=== PATIENT | male | born 1955 | race Caucasian/White ===

== ENCOUNTER 2023-03-16 19:47 | Observation (INO) ==
[2023-03-16] MEDS ORDERED: SODIUM CHLORIDE 0.9% 1,000 ML IV ONE ×2 (19:55→20:05)
[2023-03-16 20:34] LABS: Base Excess VBG -4.8 mEq/L; HCO3 VBG 22 mmol/L; Oxygen Saturation VBG 82.6 %; PCO2 VBG 44 mmHg (38-50); PO2 VBG 51 mmHg
[2023-03-16 21:12] LABS: BUN Creatinine Ratio 18.2 (10-20); Calcium 8.8 mg/dl (8.6-10.3); Creatinine Clr Calc Pharmacy 29.9 ml/min; Est GFR (African American) 24.4 ml/min; Est GFR (Non-African American) 21.1 ml/min; Potassium 5.4 mmol/L (3.5-5.1)
[2023-03-16 21:47] LABS: Basophils # (auto) 0.06 K/uL (0.00-0.20); Basophils % (auto) 0.8 %; Eosinophils # (auto) 0.15 K/uL (0.00-0.50); Hematocrit (blood only) 30.5 % (42.0-52.0); Hemoglobin 10.4 g/dl (14.0-18.0); Immature Granulocytes # (auto) 0.06 K/uL (0.01-0.20); Immature Granulocytes % (auto) 0.8 %; Lymphocytes # (auto) 1.23 K/uL (1.20-3.40); Lymphocytes % (auto) 16.1 %; Mean Corpuscular Hemoglobin 31.2 pg (25.0-34.0); Mean Corpuscular Hgb Conc 34.1 g/dL (32.0-36.0); Mean Corpuscular Volume 91.6 fL (80.0-100.0); Mean Platelet Volume 10.5 fL (9.4-12.4); Monocytes # (auto) 0.66 K/uL (0.11-0.59); Monocytes % (auto) 8.7 %; Neutrophils # (auto) 5.46 K/uL (1.40-6.50); Neutrophils % (auto) 71.6 %; Platelet Count 227 K/uL (130-400); RDW Coefficient of Variation 12.8 % (11.5-14.5); RDW Standard Deviation 43.3 fL (36.4-46.3); Red Blood Count 3.33 M/uL (4.70-6.10); White Blood Count 7.62 K/ul (4.8-10.8)
[2023-03-16] MEDS ORDERED: SODIUM CHLORIDE 0.9% 1,000 ML IV SCH (22:30)
--- NOTE | 2023-03-16 22:42 | Emergency Department Note ---
History of Present Illness General Chief complaint: Hyperglycemia Stated complaint: HYPERGLYCEMIA Time Seen by Provider: 03/16/23 19:55 History of Present Illness Provider complaint: Hyperglycemia Onset (ago): day(s) 1 67-year-old male insulin-dependent diabetic with an insulin pump presents emergency department for hyperglycemia. Patient reports for the last day he is not sure if his insulin pump is working properly. Patient states he been having trouble getting the site to work. Patient reports that he has been having increasing weakness and thirst. He states he took his blood sugar at home and was greater than 600. No chest pain difficulty breathing nausea vomiting or diarrhea. No abdominal pain. Past Med/Surg History Medical History H/O insulin dependent diabetes mellitus No pertinent family history Surgical History No pertinent past surgical history Social History Smoking Status: Never smoker Preferred Language: Lebanese Feels Safe at Home: Yes Physical Exam Vital Signs Vital Signs - 24 hr 03/16/23 19:50 03/16/23 19:55 03/16/23 21:04 Temperature 36.7 C Temperature Source Temporal Artery Scan Pulse Rate 96 H 80 Respiratory Rate 18 Respiratory Depth Normal Blood Pressure 161/80 H Blood Pressure Mean 107 Pulse Oximetry 97 Oxygen Delivery Method Room Air Room Air Sepsis Recent Fever Within 48 Hours No Sepsis New/Unexplained Change in Mental Status N/A Sepsis Action Taken by Nursing No Action Required Physical Exam GENERAL: oriented to person, place, and time. appears well-developed and well- nourished. HENT: Exam performed. - Head: Normocephalic and atraumatic. EYES: Conjunctivae and EOM are normal. Right eye exhibits no discharge. Left eye exhibits no discharge. No scleral icterus. NECK: Normal range of motion. Neck supple. No JVD present. CV: Normal rate, regular rhythm, normal heart sounds and intact distal pulses. There is no peripheral edema. Palpable radial pulses bue. PULM/CHEST: Effort normal and breath sounds normal. No respiratory distress. No stridor. no wheezes. no rales. ABD: The abdomen is soft. There is no tenderness. Insulin pump in place. NEURO: Motor and sensation grossly intact. SKIN: Skin is warm and dry. He is not diaphoretic. PSYCH: normal mood and affect. Behavior is normal. Judgment and thought content normal. Course Course 1954: The patient was evaluated in room C6. A complete history and physical exam was performed Cardiac monitoring: An order was placed for continuous cardiac monitoring. The monitor shows a rate of 80 with sinus rhythm interpreted by me [id number]: Vital signs stable. Status post 2 L of IV fluids the patient's Accu-Chek has improved from 568-488. Labs are significant for sodium of 129 potassium 5.4 creatinine 2.92. Patient states he is originally from the [facility] and gets all of his care through [facility]. Patient states he does know he has kidney disease but is not sure what his creatinine usually runs. Given that the patient's creatinine ill is elevated we do not have baseline as well as the fact that the patient insulin pump is not working, the patient would be admitted to this hospital overnight for IV hydration and glucose control. Spoke with Dr. Nathaly Robbins hospitalist and discussed his blood sugars as well as that his insulin pump was not working. I asked Dr. Lady sosa if you would like me to start the patient on insulin drip or if he would just like to manage his blood sugars through a sliding scale, he states that he will manage the patient's glucose with Lantus and do not start insulin drip at this time. Administered Medications Discontinued Medications Sodium Chloride (Nss) 1,000 mls @ 999 mls/hr IV .Q1H1M ONE Stop: 03/16/23 20:55 Last Infusion: 03/16/23 21:51 Dose: 0 mls/hr Documented By: Admin: 03/16/23 20:26 Dose: 999 mls/hr Documented By: YANI Sodium Chloride (Nss) 1,000 mls @ 999 mls/hr IV .Q1H1M ONE Stop: 03/16/23 21:05 Last Infusion: 03/16/23 21:51 Dose: 0 mls/hr Documented By: Admin: 03/16/23 20:26 Dose: 999 mls/hr Documented By: YANI Medical Decision Making Laboratory Data Attestation: I reviewed the patient's lab results. 03/16/23 20:16 03/16/23 20:16 Lab Results 1003/16/23 03/16/23 Range/Units 19:53 20:16 20:16 WBC 7.62 (4.8-10.8) K/ul RBC 3.33 L (4.70-6.10) M/uL Hgb 10.4 L (14.0-18.0) g/dl Hct 30.5 L (42.0-52.0) % MCV 91.6 (80.0-100.0) fL MCH 31.2 (25.0-34.0) pg MCHC 34.1 (32.0-36.0) g/dL RDW Std Deviation 43.3 (36.4-46.3) fL RDW Coeff of Anjum 12.8 (11.5-14.5) % Plt Count 227 (130-400) K/uL MPV 10.5 (9.4-12.4) fL Immature Gran % (Auto) 0.8 % Neut % (Auto) 71.6 % Lymph % (Auto) 16.1 % [place] % (Auto) 8.7 % Eos % (Auto) 2.0 % Baso % (Auto) 0.8 % Neut # (Auto) 5.46 (1.40-6.50) K/uL Lymph # (Auto) 1.23 (1.20-3.40) K/uL [place] # (Auto) 0.66 H (0.11-0.59) K/uL Eos # (Auto) 0.15 (0.00-0.50) K/uL Baso # (Auto) 0.06 (0.00-0.20) K/uL Immature Gran # (Auto) 0.06 (0.01-0.20) K/uL VBG pH (7.36-7.41) VBG pCO2 (38-50) mmHg VBG pO2 mmHg VBG HCO3 mmol/L VBG O2 Saturation % VBG Base Excess mEq/L Sodium 129 L (136-145) mmol/L Potassium 5.4 H (3.5-5.1) mmol/L Chloride 99 (98-107) mmol/L Carbon Dioxide 22 (21-32) mmol/L Anion Gap 8 (3-11) BUN 53 H (6-23) mg/dl Creatinine 2.92 H (0.6-1.4) mg/dl Est Cr Clr Drug Dosing 29.9 ml/min Est GFR ( Amer) 24.4 ml/min Est GFR (Non-Af Amer) 21.1 ml/min BUN/Creatinine Ratio 18.2 (10-20) Glucose 572 H* (70-99(Fasting)) mg/dl POC Glucose 568 H* (70-99) mg/dl Calcium 8.8 (8.6-10.3) mg/dl 03/16/23 03/16/23 Range/Units 20:16 22:27 WBC (4.8-10.8) K/ul RBC (4.70-6.10) M/uL Hgb (14.0-18.0) g/dl Hct (42.0-52.0) % MCV (80.0-100.0) fL MCH (25.0-34.0) pg MCHC (32.0-36.0) g/dL RDW Std Deviation (36.4-46.3) fL RDW Coeff of Anjum (11.5-14.5) % Plt Count (130-400) K/uL MPV (9.4-12.4) fL Immature Gran % (Auto) % Neut % (Auto) % Lymph % (Auto) % [place] % (Auto) % Eos % (Auto) % Baso % (Auto) % Neut # (Auto) (1.40-6.50) K/uL Lymph # (Auto) (1.20-3.40) K/uL [place] # (Auto) (0.11-0.59) K/uL Eos # (Auto) (0.00-0.50) K/uL Baso # (Auto) (0.00-0.20) K/uL Immature Gran # (Auto) (0.01-0.20) K/uL VBG pH 7.30 L (7.36-7.41) VBG pCO2 44 (38-50) mmHg VBG pO2 51 mmHg VBG HCO3 22 mmol/L VBG O2 Saturation 82.6 % VBG Base Excess -4.8 mEq/L Sodium (136-145) mmol/L Potassium (3.5-5.1) mmol/L Chloride (98-107) mmol/L Carbon Dioxide (21-32) mmol/L Anion Gap (3-11) BUN (6-23) mg/dl Creatinine (0.6-1.4) mg/dl Est Cr Clr Drug Dosing ml/min Est GFR ( Amer) ml/min Est GFR (Non-Af Amer) ml/min BUN/Creatinine Ratio (10-20) Glucose (70-99(Fasting)) mg/dl POC Glucose 488 H* (70-99) mg/dl Calcium (8.6-10.3) mg/dl [facility] Narrative 1954: The patient was evaluated in room C6. A complete history and physical exam was performed Cardiac monitoring: An order was placed for continuous cardiac monitoring. The monitor shows a rate of 80 with sinus rhythm interpreted by me [id number]: Vital signs stable. Status post 2 L of IV fluids the patient's Accu-Chek has improved from 568-488. Labs are significant for sodium of 129 potassium 5.4 creatinine 2.92. Patient states he is originally from the [facility] and gets all of his care through [facility]. Patient states he does know he has kidney disease but is not sure what his creatinine usually runs. Given that the patient's creatinine ill is elevated we do not have baseline as well as the fact that the patient insulin pump is not working, the patient would be admitted to this hospital overnight for IV hydration and glucose control. Spoke with Dr. Nathaly Robbins hospitalist and discussed his blood sugars as well as that his insulin pump was not working. I asked Dr. Andersen if you would like me to start the patient on insulin drip or if he would just like to manage his blood sugars through a sliding scale, he states that he will manage the patient's glucose with Lantus and do not start insulin drip at this time. Impression & Plan Acute kidney injury superimposed on CKD, Acute hyperglycemia Discharge Plan Visit Data Chief Complaint: Hyperglycemia Stated Complaint: HYPERGLYCEMIA ED Provider: Krishna Santana Discharge Problem: Acute kidney injury superimposed on CKD, Acute hyperglycemia Patient Disposition: Admitted As Inpatient Forms Stand Alone Forms: My [facility] Referrals Referrals: Jose J Carranza, [Primary Care Provider] -
--- NOTE | 2023-03-16 23:27 | History & Physical Report ---
Date of Service March 16, 2023 Assessment & Plan (1) Acute hyperglycemia: Plan: 67-year-old male with past med significant diabetes, hyperlipidemia, hypertension, chronic kidney disease, TIAs, anxiety and depression presents with hyperglycemia Hyperglycemia Not in DKA Insulin pump not working We will give IV insulin 6 units Lantus 10 units nightly and insulin sliding scale for now Will Monitor blood sugars and HbA1c levels Glycemic pharmacy consult Possible MISSY on chronic kidney stage III-IV Patient does not know his baseline creatinine but states his GFR is 23% Creatinine is 2.9 Avoid nephrotoxic agents We will follow labs in a.m. Hyperkalemia Potassium 5.4 Receiving IV insulin Follow labs Pseudohyponatremia Sodium 129 We will follow the labs Hypertension On chlorthalidone,, metoprolol and nifedipine We will hold valsartan and spironolactone for now for hyperkalemia Monitor blood pressure Hypothyroidism On Synthyroid Depression anxiety Continue home medications GERD Protonix BPH On Flomax DVT prophylaxis Heparin subcu Disposition Admit to medical floor Full code History of Present Illness Chief Complaint: Hyperglycemia Primary Care Provider: Jose J Carranza DO 67-year-old male with past med history significant for diabetes, hyperlipidemia, hypertension, chronic kidney disease, TIAs, anxiety and depression presents with hyperglycemia. Patient is from [place] area came for football match. He was not feeling good seemed somewhat lethargic and checking his blood sugar showed a greater than 600 so came to the hospital. Also his fell and getting admitted. States he is on insulin pump for last 30 years and seems his pump is not working today because of scar tissue. He has a new pump and is in his car. Denies any headache. No chest pain or shortness of breath. No nausea. No abdominal pain. Normal bowel and bladder movements. Afebrile. Resting comfortably Past surgical history. Bilateral shoulder surgeries. Bilateral knee surgeries. Cholecystectomy. Social history. . No smoking. Alcohol occasional. Family history. Cancer and renal disease in the family Allergies Allergy/AdvReac Type Severity Reaction Status Date / Time bacitracin Allergy Rash Verified 03/16/23 23:58 [From Neosporin ([id number])] neomycin Allergy Rash Verified 03/16/23 23:58 [From Neosporin ([id number])] polymyxin B Allergy Rash Verified 03/16/23 23:58 [From Neosporin ([id number])] Home Medications Medication Instructions Recorded Confirmed Type budesonide 3 mg 3 mg PO TID 03/16/23 03/16/23 History capsule,delayed,extended release calcitriol 0.25 mcg capsule 0.25 mcg PO .MON, WED, Sat03/16/23 03/16/23 History chlorthalidone 50 mg tablet 50 mg PO DAILY 03/16/23 03/16/23 History ezetimibe 10 mg-simvastatin 20 mg 1 tab PO DAILY 03/16/23 03/16/23 History tablet famotidine 20 mg tablet 20 mg PO BID 03/16/23 03/16/23 History insulin lispro 100 unit/mL 0 unit continuous subcutaneous 03/16/23 03/16/23 History subcutaneous solution (Humalog infusion DIRECTED U-100 Insulin) levothyroxine 50 mcg tablet 50 mcg PO DAILY 03/16/23 03/17/23 History lisdexamfetamine 70 mg capsule 70 mg PO DAILY 03/16/23 03/16/23 History (Corey) metoclopramide HCl 10 mg tablet 10 mg PO BID 03/16/23 03/17/23 History metoprolol succinate 50 mg 50 mg PO DAILY 03/16/23 03/16/23 History tablet,extended release 24 hr mirtazapine 30 mg tablet 30 mg PO HS 03/16/23 03/16/23 History nifedipine 60 mg tablet,extended 60 mg PO BID 03/16/23 03/16/23 History release 24 hr pantoprazole 40 mg tablet,delayed 40 mg PO DAILY 03/16/23 03/16/23 History release rivastigmine tartrate 1.5 mg 1.5 mg PO BID 03/16/23 03/16/23 History capsule spironolactone 25 mg tablet 12.5 mg PO DAILY 03/16/23 03/16/23 History tamsulosin 0.4 mg capsule 0.4 mg PO DAILY 03/16/23 03/16/23 History trazodone 50 mg tablet 50 mg PO DAILY 03/16/23 03/16/23 History valsartan 160 mg tablet 160 mg PO BID 03/16/23 03/17/23 History venlafaxine 150 mg 150 mg PO DAILY 03/16/23 03/16/23 History capsule,extended release 24 hr venlafaxine 75 mg capsule,extended 75 mg PO DAILY 03/16/23 03/16/23 History release 24 hr Past Med/Surg History Medical History H/O insulin dependent diabetes mellitus No pertinent family history Surgical History No pertinent past surgical history Social History Smoking Status: Never smoker Do You Dip or Chew Tobacco: No; Hx Alcohol Use: Yes Alcohol type: beer Hx Substance Use: No Preferred Language: Vietnamese Communication Ability: Effective 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 ENT- oropharynx clear Neck- supple, no JVD. Lungs- clear to auscultation no wheezing or crackles. Heart- regular rhythm; no murmur, no gallop. Abdomen- normal bowel sounds, soft, nontender, no distension. Extremities- no pretibial edema, no erythema seen. Neuro- alert, oriented x 3; PERRL, no facial palsy; no dysarthria; non focal. Skin- warm & dry Results & Data Results & Data Vital Signs (Past 12 Hours) Vital Signs Temp Pulse Resp BP Pulse Ox O2 Del Method 03/16/23 21:04 80 03/16/23 19:55 Room Air 03/16/23 19:50 36.7 C 96 H 18 161/80 H 97 Room Air Diagnostic Findings Laboratory Results WBC 7.62 K/ul (4.8-10.8) 03/16/23 20:16 RBC 3.33 M/uL (4.70-6.10) L 03/16/23 20:16 Hgb 10.4 g/dl (14.0-18.0) L 03/16/23 20:16 Hct 30.5 % (42.0-52.0) L 03/16/23 20:16 MCV 91.6 fL (80.0-100.0) 03/16/23 20:16 MCH 31.2 pg (25.0-34.0) 03/16/23 20:16 MCHC 34.1 g/dL (32.0-36.0) 03/16/23 20:16 RDW Std Deviation 43.3 fL (36.4-46.3) 03/16/23 20:16 RDW Coeff of Anjum 12.8 % (11.5-14.5) 03/16/23 20:16 Plt Count 227 K/uL (130-400) 03/16/23 20:16 MPV 10.5 fL (9.4-12.4) 03/16/23 20:16 Immature Gran % (Auto) 0.8 % 03/16/23 20:16 Neut % (Auto) 71.6 % 03/16/23 20:16 Lymph % (Auto) 16.1 % 03/16/23 20:16 [place] % (Auto) 8.7 % 03/16/23 20:16 Eos % (Auto) 2.0 % 03/16/23 20:16 Baso % (Auto) 0.8 % 03/16/23 20:16 Neut # (Auto) 5.46 K/uL (1.40-6.50) 03/16/23 20:16 Lymph # (Auto) 1.23 K/uL (1.20-3.40) 03/16/23 20:16 [place] # (Auto) 0.66 K/uL (0.11-0.59) H 03/16/23 20:16 Eos # (Auto) 0.15 K/uL (0.00-0.50) 03/16/23 20:16 Baso # (Auto) 0.06 K/uL (0.00-0.20) 03/16/23 20:16 Immature Gran # (Auto) 0.06 K/uL (0.01-0.20) 03/16/23 20:16 VBG pH 7.30 (7.36-7.41) L 03/16/23 20:16 VBG pCO2 44 mmHg (38-50) 03/16/23 20:16 VBG pO2 51 mmHg 03/16/23 20:16 VBG HCO3 22 mmol/L 03/16/23 20:16 VBG O2 Saturation 82.6 % 03/16/23 20:16 VBG Base Excess -4.8 mEq/L 03/16/23 20:16 Sodium 129 mmol/L (136-145) L 03/16/23 20:16 Potassium 5.4 mmol/L (3.5-5.1) H 03/16/23 20:16 Chloride 99 mmol/L (98-107) 03/16/23 20:16 Carbon Dioxide 22 mmol/L (21-32) 03/16/23 20:16 Anion Gap 8 (3-11) 03/16/23 20:16 BUN 53 mg/dl (6-23) H 03/16/23 20:16 Creatinine 2.92 mg/dl (0.6-1.4) H 03/16/23 20:16 Est Cr Clr Drug Dosing 29.9 ml/min 03/16/23 20:16 Est GFR ( Amer) 24.4 ml/min 03/16/23 20:16 Est GFR (Non-Af Amer) 21.1 ml/min 03/16/23 20:16 BUN/Creatinine Ratio 18.2 (-) 03/16/23 20:16 Glucose 572 mg/dl (70-99(Fasting)) H* 03/16/23 20:16 POC Glucose 503 mg/dl (70-99) H* 03/16/23 23:35 Calcium 8.8 mg/dl (8.6-10.3) 03/16/23 20:16 Code Status & VTE Plan VTE Prophylaxis Plan VTE Prophylaxis will be ordered: Yes
[2023-03-16] MEDS ORDERED: NovoLIN-R INSULIN PER UNIT CHARGE IV STA (23:49)
[2023-03-16] MEDS ORDERED: INSULIN HUMAN REGULAR PER UNIT 6 UNITS in SYRINGE 5.94 ML IV STA (23:59)
[2023-03-17] MEDS ORDERED: DEXTROSE 50% 50 ML SYRINGE IV PRN (01:45)
[2023-03-17] MEDS ORDERED: ACETAMINOPHEN 325 MG TAB PO PRN (01:45)
[2023-03-17] MEDS ORDERED: PHARMACY GLYCEMIC MGMT CONSULT PRN (01:45)
[2023-03-17] MEDS ORDERED: POLYETHYLENE (MIRALAX) 17 GM PACK PO PRN (01:45)
[2023-03-17] MEDS ORDERED: GLUCOSE 10 TAB/TUBE PO PRN (01:45)
[2023-03-17] MEDS ORDERED: GLUCOSE 40% GEL 15 GM TUBE PO PRN (01:45)
[2023-03-17] MEDS ORDERED: CARBOHYDRATES FOR HYPOGLYCEMIA PO PRN (01:45)
[2023-03-17] MEDS ORDERED: GLUCAGON FOR INJ 1 MG VIAL SQ PRN (01:45)
[2023-03-17] MEDS ORDERED: LANTUS PER UNIT CHARGE SQ SCH (01:45)
[2023-03-17] MEDS: SODIUM CHLORIDE 0.9% 1,000 ML IV SCH ×2 (01:45→08:55)
[2023-03-17] MEDS ORDERED: LANTUS PER UNIT CHARGE SQ STA (02:20)
[2023-03-17] MEDS ORDERED: INSULIN HUMAN REGULAR PER UNIT 8 UNITS in SYRINGE 7.92 ML IV ONE (02:30)
[2023-03-17] MEDS: INSULIN ASPART PER UNIT CHARGE SC SCH ×3 (04:02→12:30)
[2023-03-17] MEDS ORDERED: LEVOTHYROXINE SODIUM 50 MCG TABLET PO SCH (06:30)
[2023-03-17 06:54] LABS: Basophils # (auto) 0.04 K/uL (0.00-0.20); Basophils % (auto) 0.8 %; Eosinophils # (auto) 0.15 K/uL (0.00-0.50); Eosinophils % (auto) 2.9 %; Hematocrit (blood only) 27.3 % (42.0-52.0); Hemoglobin 9.2 g/dl (14.0-18.0); Immature Granulocytes # (auto) 0.03 K/uL (0.01-0.20); Immature Granulocytes % (auto) 0.6 %; Mean Corpuscular Hemoglobin 30.6 pg (25.0-34.0); Mean Corpuscular Hgb Conc 33.7 g/dL (32.0-36.0); Mean Corpuscular Volume 90.7 fL (80.0-100.0); Mean Platelet Volume 9.5 fL (9.4-12.4); Monocytes # (auto) 0.49 K/uL (0.11-0.59); Monocytes % (auto) 9.4 %; Neutrophils % (auto) 63.3 %; Platelet Count 173 K/uL (130-400); RDW Coefficient of Variation 12.7 % (11.5-14.5); RDW Standard Deviation 41.9 fL (36.4-46.3); Red Blood Count 3.01 M/uL (4.70-6.10); White Blood Count 5.21 K/ul (4.8-10.8)
[2023-03-17 07:39] LABS: Calcium 8.2 mg/dl (8.6-10.3); Creatinine Clr Calc Pharmacy 37.7 ml/min; Est GFR (African American) 32.6 ml/min; Est GFR (Non-African American) 28.1 ml/min; Magnesium 1.6 mg/dl (1.7-2.4); Potassium 4.2 mmol/L (3.5-5.1); Thyroid Stimulating Hormone 5.036 uIu/ml (0.300-4.500)
[2023-03-17 08:16] LABS: T4 Free Thyroxine 0.74 ng/dl (0.61-1.60)
[2023-03-17] MEDS: MAGNESIUM SULFATE / D5W 1 GM/100 ML BAG IV SCH ×2 (08:45→10:54)
[2023-03-17] MEDS ORDERED: RIVASTIGMINE TARTRATE 1.5 MG CAP PO SCH (09:00)
[2023-03-17] MEDS ORDERED: CHLORTHALIDONE 25 MG TAB PO SCH (09:00)
[2023-03-17] MEDS ORDERED: BUDESONIDE EC 3 MG CAP PO SCH (09:00)
[2023-03-17] MEDS ORDERED: FAMOTIDINE 20 MG TAB PO SCH (09:00)
[2023-03-17] MEDS ORDERED: TAMSULOSIN HCL 0.4 MG CAP PO SCH (09:00)
[2023-03-17] MEDS ORDERED: PANTOprazole 40 MG TAB PO SCH (09:00)
[2023-03-17] MEDS ORDERED: METOPROLOL SUCC 50MG EXT REL TAB PO SCH (09:00)
[2023-03-17] MEDS ORDERED: traZODone HCL 50 MG TAB PO SCH (09:00)
[2023-03-17] MEDS ORDERED: VENLAFAXINE HCL XR 75 MG CAPXR PO SCH (09:00)
[2023-03-17] MEDS ORDERED: NIFEdipine EXTENDED REL 30 MG TABCR PO SCH (09:00)
[2023-03-17] MEDS ORDERED: VENLAFAXINE HCL XR 150 MG CAPXR PO SCH (09:00)
[2023-03-17] MEDS ORDERED: HEPARIN SOD 5,000 UNIT/0.5 ML VIAL SQ SCH (09:00)
[2023-03-17] MEDS ORDERED: SIMVASTATIN PO SCH (09:00)
[2023-03-17] MEDS ORDERED: METOCLOPRAMIDE HCL 10 MG TABLET PO SCH (09:00)
[2023-03-17] MEDS ORDERED: EZETIMIBE PO SCH (09:00)
--- NOTE | 2023-03-17 13:14 | Hospitalist Progress Note ---
Date of Service March 17, 2023 Assessment & Plan (1) Acute hyperglycemia: Plan: 67-year-old male with past med significant diabetes, hyperlipidemia, hypertension, chronic kidney disease, TIAs, anxiety and depression presents with hyperglycemia Hyperglycemia-due to dietary indiscretion during the football game Not in DKA Question of insulin pump is not working is resolved We will give IV insulin 6 units Lantus 10 units nightly and insulin sliding scale for now Blood sugar has been stable Discussed with the glycemic pharmacist and asked the patient to restart the pump He will start the pump at the lower end at 0.8 unit and then work on it His blood sugar has been running around 1 10-1 30 Will be discharged home this afternoon Possible MISSY on chronic kidney stage III-IV Patient does not know his baseline creatinine but states his GFR is 23% Creatinine is 2.9 Avoid nephrotoxic agents His creatinine is improved at 2.30 from 2.92 Advised to drink more fluid and have follow-up appointment with his senior chemist/PCP Hyperkalemia Potassium 5.4 Receiving IV insulin Follow labs-hyperkalemia is corrected Pseudohyponatremia Sodium 129 Sodium level has been normalized Hypertension On chlorthalidone,, metoprolol and nifedipine We will hold valsartan and spironolactone for now for hyperkalemia Monitor blood pressure Hypothyroidism On Synthyroid Depression anxiety Continue home medications GERD Protonix BPH On Flomax DVT prophylaxis Heparin subcu Disposition Admit to medical floor Full code Will be discharged this afternoon Admission and Anticipated Discharge Date Admission Date: March 16, 2023 Subjective 03/17/2023 The patient was seen and examined in medical floor He has been feeling much better today and wants to be discharged He knows how the pump works and he wants to restart his pump which has been on hold since admission Discussed with the pharmacist and the pump will be restarted today Review of Systems Review of Systems: All systems reviewed and are unremarkable except as noted below Physical Exam Physical Exam: Sitting at the edge of the bed without any acute distress Constitutional: well developed, well nourished and + obese; not ill appearing Eyes: PERRL, conjunctivae normal, anicteric sclerae ENMT: external ear and nose normal, oropharynx normal Neck: trachea midline, no thyromegaly Respiratory: no respiratory distress Auscultation: lungs clear to auscultation bilaterally Cardiovascular: Rate/Rhythm: regular rate and regular rhythm; not tachycardic Heart Sounds: normal S1 and normal S2; no murmur Extremities: no edema Gastrointestinal (Abdomen): Inspection/Auscultation: normal bowel sounds; abdomen not distended Percussion/Palpation: abdomen soft; abdomen nontender Musculoskeletal: No acute arthritis involving any joint Neurologic: normal touch/pain/proprioception and moves all extremities; no focal motor deficits Psychiatric: A+Ox3, euthymic affect Lymphatic: no cervical or axillary lymphadenopathy Results & Data Results & Data Vital Signs (Past 12 Hours) Vital Signs Temp Pulse Pulse Resp BP Pulse Ox O2 Del Method 03/17/23 08:00 36.7 C 78 18 154/74 H 94 Room Air 03/17/23 01:45 Room Air 03/17/23 01:56 36.8 C 86 20 167/80 H 95 Room Air 03/17/23 01:45 36.8 C 86 20 167/80 H 95 Room Air Laboratory Results Short CBC 03/16/23 03/17/23 Range/Units 20:16 06:35 WBC 7.62 5.21 (4.8-10.8) K/ul Hgb 10.4 L 9.2 L (14.0-18.0) g/dl Hct 30.5 L 27.3 L (42.0-52.0) % Plt Count 227 173 (130-400) K/uL BMP 03/16/23 03/17/23 20:16 06:35 Sodium 129 L 138 D Potassium 5.4 H 4.2 D Chloride 99 110 H Carbon Dioxide 22 23 BUN 53 H 46 H Creatinine 2.92 H 2.30 H D Glucose 572 H* 200 H Calcium 8.8 8.2 L Medications Administered Current Inpatient Medications Acetaminophen (Acetaminophen 325 Mg Tab) 650 mg PO Q4H PRN PRN Reason: pain/fever Stop: 04/16/23 01:44 Budesonide (Budesonide Ec 3 Mg Cap) 3 mg PO TID [facility] Stop: 04/16/23 08:59 Last Admin: 03/17/23 08:47 Dose: 3 mg Calcitriol (Calcitriol 0.25 Mcg Capsule) 0.25 mcg PO [id number] [facility] Stop: 04/17/23 08:59 Chlorthalidone (Chlorthalidone 25 Mg Tab) 50 mg PO DAILY [facility] Stop: 04/16/23 08:59 Last Admin: 03/17/23 08:46 Dose: 50 mg Dextrose (Dextrose 50% 50 Ml Syringe) 25 - 50 ml IV UD PRN; Protocol PRN Reason: Hypoglycemia Protocol Stop: 04/16/23 01:44 Ezetimibe (Ezetimibe 10 Mg Tab) 10 mg PO HS [facility] Stop: 04/16/23 20:59 Famotidine (Famotidine 20 Mg Tab) 20 mg PO BID [facility] Stop: 04/16/23 08:59 Last Admin: 03/17/23 08:47 Dose: 20 mg Glucagon (Glucagon For Inj 1 Mg Vial) 1 mg SQ UD PRN; Protocol PRN Reason: Hypoglycemia Protocol Stop: 04/16/23 01:44 Glucose (Glucose 10 Tab/Tube) 4 - 8 tab PO UD PRN; Protocol PRN Reason: Hypoglycemia Treatment Stop: 04/16/23 01:44 Glucose (Glucose 40% Gel 15 Gm Tube) 15 - 30 gm PO UD PRN; Protocol PRN Reason: Hypoglycemia Protocol Stop: 04/16/23 01:44 Heparin Sodium (Porcine) (Heparin Sod 5,000 Unit/0.5 Ml Vial) 5,000 units SQ Q12 [facility] Stop: 04/16/23 08:59 Last Admin: 03/17/23 08:47 Dose: 5,000 units Sodium Chloride (Nss) 1,000 mls @ 125 mls/hr IV .Q8H [facility] Stop: 04/16/23 01:44 Last Admin: 03/17/23 08:55 Dose: 125 mls/hr Insulin Aspart (Insulin Aspart Per Unit Charge) 0 units SC ACHS [facility] Stop: 04/16/23 03:59 Last Admin: 03/17/23 12:30 Dose: 2 units Insulin Glargine (Lantus Per Unit Charge) 10 units SQ HS [facility] Stop: 04/16/23 01:44 Last Admin: 03/17/23 02:18 Dose: 10 units Levothyroxine Sodium (Levothyroxine Sodium 50 Mcg Tablet) 50 mcg PO DAILYBB [facility] Stop: 04/16/23 06:29 Last Admin: 03/17/23 05:59 Dose: 50 mcg Metoclopramide HCl (Metoclopramide Hcl 10 Mg Tablet) 10 mg PO BID [facility] Stop: 04/16/23 08:59 Last Admin: 03/17/23 08:48 Dose: 10 mg Metoprolol Succinate (Metoprolol Succ 50mg Ext Rel Tab) 50 mg PO DAILY [facility] Stop: 04/16/23 08:59 Last Admin: 03/17/23 08:48 Dose: 50 mg Mirtazapine (Mirtazapine Tab 15 Mg Tab) 30 mg PO HS [facility] Stop: 04/16/23 20:59 Miscellaneous (Carbohydrates For Hypoglycemia ) 15 - 30 gm PO UD PRN PRN Reason: Hypoglycemia Protocol Stop: 04/16/23 01:44 Miscellaneous (Lisdexamfetamine 70 Mg - Order Awaiting Action) 1 each N/A QS [facility] Stop: 04/16/23 07:59 Last Admin: 03/17/23 08:49 Dose: Not Given Miscellaneous Information (Pharmacy Glycemic Mgmt Consult) 1 each N/A UD PRN PRN Reason: Consult Stop: 04/16/23 01:44 Nifedipine (Nifedipine Extended Rel 30 Mg Tabcr) 60 mg PO BID [facility] Stop: 04/16/23 08:59 Last Admin: 03/17/23 08:47 Dose: 60 mg Pantoprazole Sodium (Pantoprazole 40 Mg Tab) 40 mg PO DAILY [facility] Stop: 04/16/23 08:59 Last Admin: 03/17/23 08:47 Dose: 40 mg Polyethylene Glycol (Polyethylene (Miralax) 17 Gm Pack) 17 gm PO DAILY PRN PRN Reason: Constipation Stop: 04/16/23 01:44 Rivastigmine Tartrate (Rivastigmine Tartrate 1.5 Mg Cap) 1.5 mg PO BID [facility] Stop: 04/16/23 08:59 Last Admin: 03/17/23 08:46 Dose: 1.5 mg Simvastatin (Simvastatin 20 Mg Tab) 20 mg PO HS [facility] Stop: 04/16/23 20:59 Tamsulosin HCl (Tamsulosin Hcl 0.4 Mg Cap) 0.4 mg PO DAILY [facility] Stop: 04/16/23 08:59 Last Admin: 03/17/23 08:47 Dose: 0.4 mg Trazodone HCl (Trazodone Hcl 50 Mg Tab) 50 mg PO DAILY [facility] Stop: 04/16/23 08:59 Last Admin: 03/17/23 08:47 Dose: 50 mg Venlafaxine HCl (Venlafaxine Hcl Xr 75 Mg Capxr) 75 mg PO DAILY [facility] Stop: 04/16/23 08:59 Last Admin: 03/17/23 08:46 Dose: 75 mg Venlafaxine HCl (Venlafaxine Hcl Xr 150 Mg Capxr) 150 mg PO DAILY [facility] Stop: 04/16/23 08:59 Last Admin: 03/17/23 08:46 Dose: 150 mg
--- NOTE | 2023-03-17 13:24 | Communication Note ---
Date of Service: March 17, 2023 By CMS guidelines, a determination that the admission or continued stay is not medically necessary has been made by a member of the UR committee and fiona abdalla for this hospital stay, therefore a Code 44 will be completed and the Inpatient admission will be changed to outpatient.
[2023-03-17] MEDS ORDERED: SIMVASTATIN 20 MG TAB PO SCH (21:00)
[2023-03-17] MEDS ORDERED: EZETIMIBE 10 MG TAB PO SCH (21:00)
[2023-03-17] MEDS ORDERED: MIRTAZAPINE TAB 15 MG TAB PO SCH (21:00)
[2023-03-18 07:15] LABS: Estimated Average Glucose 209 mg/dl; Hemoglobin A1C 8.9 % (4.5-5.6)
--- NOTE | 2023-03-18 08:02 | Discharge Summary ---
Date of Service March 17, 2023 Admission HPI Per Admitting Provider 67-year-old male with past med history significant for diabetes, hyperlipidemia, hypertension, chronic kidney disease, TIAs, anxiety and depression presents with hyperglycemia. Patient is from [place] area came for football match. He was not feeling good seemed somewhat lethargic and checking his blood sugar showed a greater than 600 so came to the hospital. Also his fell and getting admitted. States he is on insulin pump for last 30 years and seems his pump is not working today because of scar tissue. He has a new pump and is in his car. Denies any headache. No chest pain or shortness of breath. No nausea. No abdominal pain. Normal bowel and bladder movements. Afebrile. Resting comfortably Past surgical history. Bilateral shoulder surgeries. Bilateral knee surgeries. Cholecystectomy. Social history. . No smoking. Alcohol occasional. Family history. Cancer and renal disease in the family Admission Exam Per Admitting Provider Physical Exam: General- Not in distress Head- atraumatic Eyes- PERRL. ENT- oropharynx clear Neck- supple, no JVD. Lungs- clear to auscultation no wheezing or crackles. Heart- regular rhythm; no murmur, no gallop. Abdomen- normal bowel sounds, soft, nontender, no distension. Extremities- no pretibial edema, no erythema seen. Neuro- alert, oriented x 3; PERRL, no facial palsy; no dysarthria; non focal. Skin- warm & dry Principal Diagnosis Hyperglycemia-resolved, diabetes on insulin pump, MISSY with possible CKD Discharge Exam Sitting at the edge of the bed without any acute distress Constitutional well developed, well nourished and + obese; not ill appearing Eyes PERRL, conjunctivae normal, anicteric sclerae ENMT external ear and nose normal, oropharynx normal Neck trachea midline, no thyromegaly Respiratory no respiratory distress Auscultation: lungs clear to auscultation bilaterally Cardiovascular Rate/Rhythm: regular rate and regular rhythm; not tachycardic Heart Sounds: normal S1 and normal S2; no murmur Extremities: no edema Gastrointestinal (Abdomen) Inspection/Auscultation: normal bowel sounds; abdomen not distended Percussion/Palpation: abdomen soft; abdomen nontender Neurologic normal touch/pain/proprioception and moves all extremities; no focal motor deficits Psychiatric A+Ox3, euthymic affect Lymphatic no cervical or axillary lymphadenopathy Discharge Data Allergies Allergy/AdvReac Type Severity Reaction Status Date / Time bacitracin Allergy Rash Verified 03/16/23 23:58 [From Neosporin ([id number])] neomycin Allergy Rash Verified 03/16/23 23:58 [From Neosporin ([id number])] polymyxin B Allergy Rash Verified 03/16/23 23:58 [From Neosporin ([id number])] Consultations 03/16/23 22:26 ED Decision to Admit Stat Hospital Course (1) Acute hyperglycemia: 67-year-old male with past med significant diabetes, hyperlipidemia, hypertension, chronic kidney disease, TIAs, anxiety and depression presents with hyperglycemia Hyperglycemia-due to dietary indiscretion during the football game Not in DKA Question of insulin pump is not working is resolved We will give IV insulin 6 units Lantus 10 units nightly and insulin sliding scale for now Blood sugar has been stable Discussed with the glycemic pharmacist and asked the patient to restart the pump He will start the pump at the lower end at 0.8 unit and then work on it His blood sugar has been running around 1 10-1 30 Will be discharged home this afternoon Possible MISSY on chronic kidney stage III-IV Patient does not know his baseline creatinine but states his GFR is 23% Creatinine is 2.9 Avoid nephrotoxic agents His creatinine is improved at 2.30 from 2.92 Advised to drink more fluid and have follow-up appointment with his customer service representative/PCP Hyperkalemia Potassium 5.4 Receiving IV insulin Follow labs-hyperkalemia is corrected Pseudohyponatremia Sodium 129 Sodium level has been normalized Hypertension On chlorthalidone,, metoprolol and nifedipine We will hold valsartan and spironolactone for now for hyperkalemia Monitor blood pressure Hypothyroidism On Synthyroid Depression anxiety Continue home medications GERD Protonix BPH On Flomax DVT prophylaxis Heparin subcu Disposition Admit to medical floor Full code Will be discharged this afternoon Total Time Total Time Spent Total Time Spent (In Minutes): 35 minutes Discharge Plan Discharge Items Patient Disposition: Home - Self-Care Reason For Visit: HYPERGLYCEMIA Discharge Diagnosis: Hyperglycemia-resolved, diabetes on insulin pump, MISSY with possible CKD Condition on Discharge: Fair Activity: Resume your previous activity Non-emergency contact: Primary Care Provider Call non-emergency contact if: you have any medication questions and your sy mptoms worsen Follow-up/Referrals: Jose J Carranza, DO [Primary Care Provider] - Diet: Carb Consistent or DM2 Addtl Attending Provider Instructions: Please take precautions to avoid falls Take your medications as advised by your primary care physician Make an appointment with your call center receptionist regarding the pump No change in your medication Follow diabetic diet Pending Studies at Discharge: No Stand-Alone Forms: [employer] Beverages, Smoking Cessation Medications and DC Order Prescriptions: Continued rivastigmine tartrate 1.5 mg capsule 1.5 mg PO BID venlafaxine 75 mg capsule,extended release 24hr 75 mg PO DAILY trazodone 50 mg tablet 50 mg PO DAILY metoprolol succinate 50 mg tablet extended release 24 hr 50 mg PO DAILY venlafaxine 150 mg capsule,extended release 24hr 150 mg PO DAILY Rx Instructions: Take with a 75 mg cap chlorthalidone 50 mg tablet 50 mg PO DAILY spironolactone 25 mg tablet 12.5 mg PO DAILY famotidine 20 mg tablet 20 mg PO BID nifedipine 60 mg tablet extended release 24hr 60 mg PO BID tamsulosin 0.4 mg capsule 0.4 mg PO DAILY levothyroxine 50 mcg tablet 50 mcg PO DAILY pantoprazole 40 mg tablet,delayed release (DR/EC) 40 mg PO DAILY mirtazapine 30 mg tablet 30 mg PO HS budesonide 3 mg capsule,delayed,extend.release 3 mg PO TID insulin lispro [Humalog U-100 Insulin] 100 unit/mL solution 0 unit continuous subcutaneous infusion DIRECTED calcitriol 0.25 mcg capsule 0.25 mcg PO .MON, WED, FRI metoclopramide HCl 10 mg tablet 10 mg PO BID valsartan 160 mg tablet 160 mg PO BID ezetimibe-simvastatin 10-20 mg tablet 1 tab PO DAILY lisdexamfetamine [Vyvanse] 70 mg capsule 70 mg PO DAILY Discharge Orders: Discharge Order (Routine); Ordered 03/17/23 Ordered By: Jyoti Guardado/Other Patient Handouts: High Blood Sugar (Hyperglycemia) Admission Data Admit Date/Time: 03/16/23 23:25 Attending Provider: Jyoti Horn Admit Provider: Tab Andersen Primary Care Provider: Jose J Carranza Other Providers: Tab Andersen ; Slime Wayne Other Interventions: Discharge Summary Assessment (RN) Last Done: 03/17/23 14:11
[2023-03-18] MEDS ORDERED: CALCITRIOL 0.25 MCG CAPSULE PO SCH (09:00)
== END 2023-03-17 14:44 | disposition home or self-care (01) | DRG 683 ==
LOC: ED 19:47 → SUATTDRO 23:25 → 3N 23:25 → INTOOBSV 23:25 → 3N 03-17 01:09